=== PATIENT | female | born 1985 | race Hispanic/Latino ===

== ENCOUNTER 2019-01-13 19:45 | Observation (INO) | payer OTHER ==
[~2019-01-13] VITALS: Ht 162.6 cm; Wt 85.7 kg
[2019-01-13 21:02] LABS: APPEARANCE,URINE CLEAR (CLEAR); BILIRUBIN,URINE NEGATIVE (NEGATIVE); COLOR,URINE YELLOW (YELLOW); GLUCOSE, URINE (UA) NEGATIVE (NEGATIVE); KETONES,URINE NEGATIVE (NEGATIVE); LEUKOCYTE ESTERASE ,URINE NEGATIVE (NEGATIVE); NITRATE,URINE NEGATIVE (NEGATIVE); OCCULT BLOOD,URINE NEGATIVE (NEGATIVE); PROTEIN,URINE NEGATIVE (NEGATIVE); UROBILINOGEN,URINE 0.2 mg/dL (0.2-1.0)
[2019-01-13 22:30] VITALS: BP 132/80
[2019-01-14] VITALS (7 sets, daily range): BP systolic 128–149; BP diastolic 80–89
[2019-01-14] MEDS ORDERED: GLYB5TAB8 PO (05:39)
[2019-01-14] MEDS ORDERED: INSULIN HUMULIN R 100 UNIT/ML 3ML SQ SCH ×2 (07:00→17:00)
[2019-01-14] MEDS ORDERED: INSULIN NPH 100 UNIT/ML 3ML SQ SCH ×2 (07:00→17:00)
[2019-01-14 08:39] LABS: MEAN CORPUSCULAR HEMOGLOBIN 28.8 pg (27.0-33.0); MEAN CORPUSCULAR HGB CONC 34.1 g/dL (32.0-36.0); MEAN CORPUSCULAR VOLUME 84.3 fL (79-99); PLATELET COUNT (AUTO) 257 K/uL (130-400); RED BLOOD CELL COUNT(AUTO) 4.15 MIL/uL (4.00-5.50); RED CELL DISTRIBUTION WIDTH 14.9 % (11.0-15.5); WHITE BLOOD COUNT (AUTO) 9.2 K/uL (4.8-10.8)
[2019-01-14 08:47] LABS: HEMOGLOBIN A1C 5.6 % (4.0-6.0)
[2019-01-14] MEDS ORDERED: ASPIRIN 81MG TAB.CHEW PO SCH (09:00)
[2019-01-14] MEDS: ASPIRIN 81 MG EC TAB PO SCH (11:10)
--- NOTE | 2019-01-14 14:55 | NUR ---
REPORT REPORT RECEIVED FROM LISA NAVA FOR CONTINUITY OF CARE
--- NOTE | 2019-01-14 15:59 | NUR ---
Diet Education RD provided GDM Diet education. RD reviewed educational reference materials and handouts and emphasized importance of portion control and appropriate eating/snacking measures. Pt with no questions at this time. RD encouraged pt to notify as questions or concerns arise. Pt verbalized understanding. Addendum: 01/14/19 at [address] RD Amended: Links added.
--- NOTE | 2019-01-14 17:26 | NUR ---
INSULIN ADMINISTRATION Verbalized to PT how to administer, mix, and self inject insulin; Teach back completed with return demonstration done; PT felt very nervous, sweaty palms, was able to verbalize how to withdraw insulin but was so nervous that had to attempt 4 tries, explained to pt she needs to be confident since Insulin is a very dangerous drug; Pt was then able to withdraw from both vials and self injected to R Abdomen; Pt stated feels very nervous, informed that I would provide water vials so she may practice; Pt and spouse verbalized understanding
[2019-01-14] MEDS ORDERED: WATER FOR INJECTION,STERILE 5 ML VIAL ONE (18:11)
--- NOTE | 2019-01-14 18:41 | NUR ---
INSTRUCTIONS Provided to pt: 1 insulin syringe, 2 sterile water vials labeled: cloudy/NPH and clear/Regular, 1 orange, and few alcohol wipes; also gave Printed Instructions on how to store, mix, and self inject insulin; Teach back provided and answered pt's questions; Pt and Spouse verbalized understanding and Pt signed understanding of instructions; will continue to monitor pt
[2019-01-15 04:13] VITALS: BP 127/72
[2019-01-15] MEDS ORDERED: INSULIN NPH 100 UNIT/ML 3ML SQ SCH ×2 (07:00)
[2019-01-15] MEDS ORDERED: INSULIN HUMULIN R 100 UNIT/ML 3ML SQ SCH ×2 (07:00)
[2019-01-15 07:46] VITALS: BP 130/75
--- NOTE | 2019-01-15 07:47 | NUR ---
PT. MACI UP INSULIN REG. AND NPH AND INJECTED SELF.
--- NOTE | 2019-01-15 08:05 | NUR ---
ROUNDS [facility] [place] ROUNDING ON PATIENT. PATIENT VERBALIZED SHE IS COMFORTABLE WITH DRAWING UP INSULIN AND ADMINISTERING. NEW ORDERS RECEIVED FOR DISCHARGE.
[2019-01-15] MEDS: ASPIRIN 81 MG EC TAB PO SCH (08:57)
[2019-01-15 11:29] VITALS: BP 123/79
--- NOTE | 2019-01-15 11:50 | NUR ---
INSTRUCTIONS DISCHARGE INSTRUCTIONS READ AND EXPLAINED TO PATIENT. PATIENT WAS ABLE TO DRAW UP INSULIN REG AND NPH CORRECTLY AND ADMINISTER WITHOUT PROBLEMS. SATISFACTORY PATIENT TEACH BACK UTILIZED. NO COMPLAINTS OR CONCERNS ADDRESSED.
--- NOTE | 2019-01-15 12:10 | NUR ---
DISCHARGE PATIENT LEFT UNIT VIA WHEELCHAIR WITH BELONGINGS IN HAND. PERSONAL VEHICLE USED FOR TRANSPORTATION.
== END 2019-01-15 12:10 | disposition home or self-care (01) ==
LOC: LDH 19:45 → WSH 22:23
PROVIDERS: ADMIT Obstetrics & Gynecology; ATTEND Obstetrics & Gynecology
DX: O24.414 Gestational diabetes mellitus in pregnancy, insulin controlled (principal); Z3A.23 23 weeks gestation of pregnancy
CPT/HCPCS: 36415; 81003; 82948 ×11; 83036; 85027; 96372 ×2; G0378 ×41; J1815 ×6